=== PATIENT | female | born 1985 | race Caucasian/White ===

== ENCOUNTER 2017-12-21 09:50 | Observation (INO) | payer OTHER, MEDICAID ==
--- NOTE | 2017-12-21 07:27 | PDGENHP ---
History and Physical History and Physical: Assessment and Plan: 1. Endometriosis determined by laparoscopy Violet is scheduled for a repeat laparoscopy. Below is a copy of our prior plan. Violet has laparoscopic proven endometriosis which was not excised during her two laparoscopies last year. Additionally, she has bilateral tubal occlusion. The left may be from adhesions. It is unclear what is causing the occlusions on the right. The radiology report indicated a truncated tube consistent with a salpingectomy. But there is no indication that a salpingectomy was performed during either laparoscopy. She continues to suffer from severe pelvic pain, dysmenorrhea, and dyschezia. We reviewed all conservative and surgical options. At the end of our discussion she is interested in scheduling robotic excision of all endometriosis. This will include all lesions on the bowel, ureters, bladder, and pelvic structures. I also will evaluate the anterior chest wall and diaphragm for additional lesions of endometriosis given her cyclic chest and shoulder pain. These lesions also will be excised. I also will excise her new left ovarian endometrioma. I will perform a more thorough pelvic exam after induction of anesthesia to evaluate for and nodularity which will need to be addressed given my limited pelvic exam in the office secondary to extreme pain. Finally, I will perform a tubal perfusion study to reevaluate whether she has any patency of either fallopian tube. 2. Rectal endometriosis 3. Dysmenorrhea 4. Chest pain, non-cardiac Subjective: Patient ID: Violet Dallas is a 31 y.o. female who [facility] for endometriosis. HPI Violet underwent excision of endometriosis last year. She has symptoms of recurrent pain and has requested a repeat laparoscopy to look for and recurrent discease. Below is a copy of our prior pre-op history and physical. Violet Dallas presents for a preoperative visit. She is scheduled for a robotic excision of extensive endometriosis and left ovarian endometrioma and tubal perfusion study. The risks, benefits, and alternatives were presented and informed consent was obtained. 40 minutes of this 40 minute appointment was spent counceling, reviewing the procedure in detail, and discussing the preoperative and postoperative instructions. Below is a copy of our prior visit note. Violet is a 33-year-old para 2 woman with a set of twins. She has a long history of pelvic pain as well as laparoscopic proven endometriosis. She has had pain for about 3 years. Prior to that, she had extremely painful menses since the age of 17, which was mostly a cramping type sensation. After she failed medical management, Dr. Yeimi Hernandez performed a laparoscopy in December 2014. Her operative note indicates she found extensive deeply invasive endometriosis throughout the posterior cul-de-sac and on the pelvic sidewalls. She had a large endometrioma trapped between the left ovary and pelvic sidewall. She also had a simple follicular cyst of the right ovary with adhesions involving the colon to the right abdominal sidewall. The left fallopian tube appeared patent. Cystoscopy was unremarkable. Much of the endometriosis was found to overlie the ureters, major blood vessels, and the colon. She was only able to fulgurate the lesions which were found not to overlie vital structures. A chocolate cystic structure was found to be trapped between the left ovary and the pelvic sidewall. This ruptured during manipulation. She did not find any cyst wall to remove. Dr. Hernandez performed a tubal perfusion study with methylene blue at the conclusion of the procedure. She noted moderate spillage noted from the left tube but no spillage from the right tube. Unfortunately, Violet's pain persisted after surgery. A second laparoscopy was performed in August later that year. Dr. Hernandez found a deep implant of endometriosis on the right ovary which was fulgurated. She excised an implant adjacent to the right margin of the colon. All other implants were found to be deeply invasive and were fulgurated. A large left endometrioma was drained and the cyst wall removed. After the second laparoscopy Violet was started on a LoLoestrin, which made her feel very anxious. She then was switched to Citlalli, which apparently was well tolerated. She then stopped the control pill around January of 2016 to attempt . Her dysmenorrhea then returned. Dr. Hernandez ordered a hysterosalpingogram to look for tubal patency. The results showed no spillage from the left fallopian tube into the peritoneal cavity. The right fallopian tube was truncated consistent with a prior salpingectomy. However, no indication of a salpingectomy being performed was indicated in either operative note. Last June Dr. Hernandez recommended referral to [facility] given her infertility. Violet had been planning to go to [facility] [place]. Therefore, Dr. Hernandez ordered a pelvic ultrasound last September. She was found to have a possible 2.8 cm complex left ovarian cyst , which the machinery dismantler felt may be an endometrioma. Violet states that 2 weeks before her menses she develops right lower quadrant pain, nausea, and cramping. This radiates to her low back and rectum. She feels bloated when eating food. Additionally, she has some upper left abdomen/chest pain, which radiates to her left arm. This occurs in a cyclic fashion. She apparently has had a recent workup by gastroenterology, which was reportedly negative. I also received a photocopy of ultrasound images dated December 06, 2016. There is no associated report. The uterus is severely retroflexed. She appears to have a 3.1 cm left ovarian cyst, which to me has the appearance of an endometrioma. Her medical history is also significant for thyroid disorder after a thyroidectomy for a nodule. She also has fibromyalgia, IBS, anxiety, depression , and migraine headaches. PastMedicalHistory Past Medical History Diagnosis Date Acne Anxiety state, unspecified 2006 Cancer (HC code) 2014 Depression 2005 Dyspareunia, female Endometriosis Endometriosis determined by laparoscopy Erythromelalgia (HC code) 2008 Esophageal reflux 12/14/2010 Fibromyalgia Flushing ever since , right side of face worse than left, hurts, multiple workups, neg Generalized anxiety disorder Hypothyroidism Intractable chronic migraine without aura and with status migrainosus Irritable bowel syndrome Major depression Postherpetic neuralgia 06/10/2012 Right thyroid nodule Supraorbital neuralgia, 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 clonazePAM (KLONOPIN) 1 mg tablet for anxiety. Take one tablet daily prn gabapentin (GRALISE) 600 mg ER tablet for Neuropathic Pain. TAKE 3 TABLETS BY MOUTH TWICE DAILY FOR NEUROPATHIC PAIN gabapentin (NEURONTIN) 600 mg tablet Take 2 tablets by mouth 3 times daily for Neuropathic Pain. (Patient not taking: Reported on 12/06/2016) levothyroxine (SYNTHROID) 100 mcg tablet Take 1 tablet by mouth daily for hypothyroidism. LINZESS 145 mcg capsule 145 mcg every other day. rizatriptan (MAXALT) 10 mg tablet TAKE 1 TABLET BY MOUTH NEEDED FOR MIGRAINE. MAY REPEAT IN 2 HOURS IF NEEDED. MAX OF 10 DAYS PER MONTH rizatriptan (MAXALT) 10 mg tablet Take 1 tablet by mouth as needed for Migraine for Migraine. May repeat in 2 hours if needed. Max 10 days per month No current facility-administered medications for this visit. Facility-Administered Medications Ordered in Other Visits Medication Dose Route Frequency Provider Last Rate Last Dose dexaMETHasone (DECADRON) 4 mg/mL injection Intravenous PRN Kennedy , Tea S, OBGYN NURSE 6 mg at 07/13/12 1040 ephedrine injection Intravenous PRN Kennedy, Tea S, OBGYN NURSE 5 mg at 07/13/12 1059 fentaNYL PF (SUBLIMAZE) injection PRN Kennedy, Tea S, OBGYN NURSE 25 mcg at 07/13/12 1102 lidocaine 2% (cardiac) (XYLOCAINE) injection syringe PRN Kennedy , Tea S, OBGYN NURSE 20 mg at 07/13/12 1041 midazolam (VERSED) 1 mg/mL injection Intravenous PRN Kennedy, Tea S, OBGYN NURSE 0.5 mg at 07/13/12 1006 ondansetron (ZOFRAN) injection PRN Kennedy, Tea S, OBGYN NURSE 4 mg at 07/13/12 1045 PLASMALYTE solution Continuous PRN Kennedy, Tea S, OBGYN NURSE propofol (DIPRIVAN) infusion 10 mg/mL Continuous PRN Kennedy, Tea S, OBGYN NURSE Stopped at 07/13/12 1126 propofol (DIPRIVAN) injection PRN Kennedy, Tea S, OBGYN NURSE 20 mg at 07/13/12 1100 ALLERGIES: Tramadol; Latex; Morphine; and Pollen extracts I have reviewed, verified and agree with the past medical, surgical, , family, social and ROS history as documented by the RN today. Review of Systems Objective: Vital Signs: Visit Vitals BP 108/60 Pulse 60 Temp 36.7 C (98 F) (Temporal Artery) Resp 16 Ht 1.6 m (5' 3") Wt 53.1 kg (117 lb) LMP 11/03/2016 (Approximate) SpO2 98% BMI 20.73 kg/m2 Physical Exam Gen: This is an alert, well developed woman in no distress. Neuro: She moves all extremities. Psych: She is appropriate, oriented, with normal affect. Neck: No thyroid enlargement, adenopathy, or tenderness. Lungs: Clear to ascultation, no wheezes or rales. Heart: Regular rate and rhythm without obvious murmurs. Abdomen: Soft, non-tender, without guarding, rebound, or masses. Extremities: No edema or cyanosis. Pelvic: Normal external genitalia. Non-gaping introitus, vagina without discharge, adequately estrogenized, no significant prolapse. Cervix without lesions or discharge. Uterus normal sized. Violet is exquisitely tender in both the anterior and posterior cul-de-sacs. The uterus is retroverted and immobile. She has tenderness surrounding the cervix and along the posterior uterus. Both uterosacral ligaments are tender. It is difficult to appreciate any nodularity since the exam was significantly limited by pain. DATA: I have reviewed patient's outside medical records. Summary findings include as noted above. TIME/COMMUNICATION: I personally spent a total of 120 minutes taking the patient's history, reviewing her extensive medical records, performing her physical exam and counseling the patient regarding her endometriosis, pain, and treatment options. Jason lEizalde MD Board Certified Female Pelvic Medicine and Reconstructive Surgery Director of Minimally Invasive Gynecologic Surgery, [facility] Minimally Invasive Gynecologic Surgery Designee
[~2017-12-21 09:50] MED LIST: ACETAMINOPHEN 500 MG TAB PO ONE; GABAPENTIN 400 MG CAP PO ONE; LR 1,000 ML IV ONE; PHENAZOPYRIDINE HCL 200 MG TAB PO ONE; ceFAZolin 2 GM/SWFI 2 GM/20 ML SYR IVP ONE
[2017-12-21] MEDS ORDERED: MIDAZOLAM 2 MG/2 ML VIAL ONE (10:26)
[2017-12-21] MEDS ORDERED: fentaNYL 250 MCG/5 ML INJ ONE (10:45)
[2017-12-21] MEDS ORDERED: PROPOFOL/EMULSION 500 MG/50 ML BOTTLE IV ONE (10:45)
[2017-12-21] MEDS ORDERED: BUPIVACAINE/EPI 0.5% 30 ML SDV ONE (10:56)
[2017-12-21] MEDS ORDERED: DIAZEPAM 10 MG/2 ML SYR ONE (11:00)
[2017-12-21] MEDS ORDERED: DIAZEPAM 10 MG/2 ML SYR IVP PRN (11:24)
[2017-12-21] MEDS ORDERED: fentaNYL 100 MCG/2 ML INJ IVP PRN (11:24)
[2017-12-21] MEDS ORDERED: DEXAMETHASONE 4 MG/ML VIAL IVP PRN (11:24)
[2017-12-21] MEDS ORDERED: HYDROCODONE/APAP 5/325 TAB PO PRN ×2 (11:24→14:11)
[2017-12-21] MEDS ORDERED: ACETAMINOPHEN 500 MG TAB PO PRN (11:24)
[2017-12-21] MEDS ORDERED: NALOXONE HCL 0.4 MG/ML INJ IVP PRN (11:24)
[2017-12-21] MEDS ORDERED: epHEDrine SULFATE 10 MG/ML SYR IVP PRN (11:24)
[2017-12-21] MEDS ORDERED: OXYCODONE/APAP 5/325 TAB PO PRN (11:24)
[2017-12-21] MEDS ORDERED: MEPERIDINE 25 MG/ML SYR IVP PRN (11:24)
[2017-12-21] MEDS ORDERED: LR 500 ML IV PRN (11:24)
[2017-12-21] MEDS ORDERED: PHENYLEPHRINE HCL 100 MCG/ML SYR IVP PRN (11:24)
[2017-12-21] MEDS ORDERED: ALBUTEROL 3 ML DEYVIAL IH PRN (11:24)
[2017-12-21] MEDS ORDERED: ONDANSETRON 4 MG/2 ML VIAL IVP PRN (11:24)
[2017-12-21] MEDS ORDERED: PROMETHAZINE HCL 25 MG/ML INJ IVP PRN (11:24)
[2017-12-21] MEDS ORDERED: METOCLOPRAMIDE 10 MG/2 ML VIAL IVP PRN (11:24)
--- NOTE | 2017-12-21 11:24 | PDANEPAE ---
ANE Past Medical History - Cardiovascular History Hx Hypertension: No Hx Arrhythmias: No Hx Chest Pain: No Hx Coronary Artery / Peripheral Vascular Disease: No Hx CHF / Valvular Disease: No Hx Palpitations: No - Pulmonary History Hx COPD: No Hx Asthma/Reactive Airway Disease: No Hx Recent Upper Respiratory Infection: No Hx Oxygen in Use at Home: No Hx Sleep Apnea: No Sleep Apnea Screening Result - Last Documented: Negative - Neurologic History Hx Cerebrovascular Accident: No Hx Seizures: No Hx Dementia: No - Endocrine History Hx Diabetes: No - Renal History Hx Renal Disorders: No - Liver History Hx Hepatic Disorders: No - Neurological & Psychiatric Hx Hx Neurological and Psychiatric Disorders: Yes Neurological / Psychiatric History Comment: anxiety,depression - Cancer History Hx Cancer: Yes Cancer History Comment: thyroid CA 2014 - Congenital Disorder History Hx Congenital Disorders: No - GI History Hx Gastrointestinal Disorders: Yes Gastrointestinal History Comment: IBS with constipation - Other Health History Other Health History: bruises easily - Chronic Pain History Chronic Pain: Yes (facial discomfort ETIENNE) - Surgical History Prior Surgeries: excision of endometriosis 2017. thyroidectomy 2016. lap endometriosis x2 ANE Review of Systems Review of Systems: - Exercise capacity METS (RN): 4 METS ANE Patient History - Allergies Allergies/Adverse Reactions: latex Allergy (Intermediate, Verified 12/21/17 09:48) Rash morphine Allergy (Mild, Verified 12/21/17 09:48) Itching tramadol Allergy (Mild, Verified 12/21/17 09:48) Itching - Home Medications Home Medications: Cholecalciferol Vit D3 [Vitamin D3 2000 units tab (OTC)] 4,000 units PO DAILY [Last Taken Unknown] Gabapentin [Gralise] 300 mg PO BID 12/14/17 [Last Taken Unknown] Gabapentin [Gralise] 600 mg PO TID 12/14/17 [Last Taken Unknown] Herbals/Supplements -Info Only 1 ea PO DAILY 12/14/17 [Last Taken Unknown] Ibuprofen [Motrin (*)] 600 mg PO DAILY PRN 12/14/17 [Last Taken Unknown] Levothyroxine [Synthroid 100 mcg (*)] 100 mcg PO DAILY06 12/14/17 [Last Taken Unknown] Methocarbamol [Robaxin 500 mg (*)] 500 - 1,000 mg PO Q6HRS PRN 12/14/17 [Last Taken Unknown] clonazePAM [klonoPIN (*)] 1 mg PO DAILY PRN 12/14/17 [Last Taken Unknown] - NPO status NPO Since - Liquids (Date): 12/21/17 NPO Since - Liquids (Time): 08:00 NPO Since - Solids (Date): 12/20/17 NPO Since - Solids (Time): 20:00 - Smoking Hx Smoking Status: Former smoker - Family Anes Hx Family Hx Anesthesia Complications: father gets really nauseated ANE Labs/Vital Signs - Vital Signs Blood Pressure: 101/67 Heart Rate: 58 Respiratory Rate: 16 O2 Sat (%): 99 Height: 162.56 cm Weight: 52.617 kg ANE Physical Exam - Airway Neck exam: FROM Mallampati Score: Class 1 Mouth exam: normal dental/mouth exam - Pulmonary Pulmonary: no respiratory distress, no rales or rhonchi, clear to auscultation - Cardiovascular Cardiovascular: regular rate and rhythym, no murmur, rub, or gallop - ASA Status ASA Status: III ANE Anesthesia Plan Anesthesia Plan: general endotracheal anesthesia
[2017-12-21] MEDS ORDERED: PROPOFOL 200 MG/20 ML VIAL ONE (12:24)
[2017-12-21] MEDS ORDERED: KETOROLAC 30 MG/1 ML SDV ONE (12:53)
[2017-12-21] MEDS ORDERED: DEXAMETHASONE 4 MG/ML VIAL ONE (12:53)
[2017-12-21] MEDS ORDERED: SUGAMMADEX SODIUM 200 MG/2 ML VIAL IVP ONE (12:53)
[2017-12-21] MEDS ORDERED: ONDANSETRON 4 MG/2 ML VIAL ONE (12:53)
[2017-12-21] MEDS ORDERED: ROCURONIUM 50 MG/5 ML VIAL ONE (12:53)
[2017-12-21] MEDS ORDERED: RANITIDINE 50 MG/2 ML VIAL ONE (12:53)
[2017-12-21] MEDS ORDERED: LIDOCAINE 2% 5 ML SDV ONE (12:53)
[2017-12-21] MEDS ORDERED: METOCLOPRAMIDE 10 MG/2 ML VIAL ONE (12:53)
--- NOTE | 2017-12-21 13:00 | POSTOPPROG ---
Post Op Note Date of Operation: 12/21/17 Surgeon: Jason Elizalde Electrical Design Technologist: Elizabeth Castillo Anesthesiologist: Yelena Anesthesia: GET(General Endotracheal) Pre-op Diagnosis: Endometriosis, pelvic pain Post-op Diagnosis: Same Procedure: Robotic excision of endo, rectal lesion, bilat ureterolysis Findings: Ureters function at end of case Inf/Abcess present in the surg proc area at time of surgery?: No EBL: Minimal Complications: None
--- NOTE | 2017-12-21 13:10 | POSTANESTH ---
Post Anesthetic Evaluation Cardiovascular Status: Normal, Stable, Similar to Pre-Op Cond Respiratory Status: Normal, Stable, Similar to Pre-op Cond. Level of Consciousness/Mental Status: Mildly Sleepy, Arousable Pain Control: Adequate, Prn Tx Ordered Nausea/Vomiting Control: Adequate, Prn Tx Ordered Complications Possibly Related to Anesthesia: None Noted
[2017-12-21] MEDS ORDERED: fentaNYL 100 MCG/2 ML INJ ONE (13:12)
[2017-12-21] MEDS: HYDROmorphONE/DILAUDID 1 MG/ML INJ IVP PRN ×2 (13:15→13:37)
--- NOTE | 2017-12-21 13:18 | PDANEPAE ---
ANE Past Medical History - Cardiovascular History Hx Hypertension: No Hx Arrhythmias: No Hx Chest Pain: No Hx Coronary Artery / Peripheral Vascular Disease: No Hx CHF / Valvular Disease: No Hx Palpitations: No - Pulmonary History Hx COPD: No Hx Asthma/Reactive Airway Disease: No Hx Recent Upper Respiratory Infection: No Hx Oxygen in Use at Home: No Hx Sleep Apnea: No Sleep Apnea Screening Result - Last Documented: Negative - Neurologic History Hx Cerebrovascular Accident: No Hx Seizures: No Hx Dementia: No - Endocrine History Hx Diabetes: No - Renal History Hx Renal Disorders: No - Liver History Hx Hepatic Disorders: No - Neurological & Psychiatric Hx Hx Neurological and Psychiatric Disorders: Yes Neurological / Psychiatric History Comment: anxiety,depression - Cancer History Hx Cancer: Yes Cancer History Comment: thyroid CA 2014 - Congenital Disorder History Hx Congenital Disorders: No - GI History Hx Gastrointestinal Disorders: Yes Gastrointestinal History Comment: IBS with constipation - Other Health History Other Health History: bruises easily - Chronic Pain History Chronic Pain: Yes (facial discomfort ETIENNE) - Surgical History Prior Surgeries: excision of endometriosis 2017. thyroidectomy 2016. lap endometriosis x2 ANE Review of Systems Review of Systems: - Exercise capacity METS (RN): 4 METS ANE Patient History - Allergies Allergies/Adverse Reactions: latex Allergy (Intermediate, Verified 12/21/17 09:48) Rash morphine Allergy (Mild, Verified 12/21/17 09:48) Itching tramadol Allergy (Mild, Verified 12/21/17 09:48) Itching - Home Medications Home Medications: Cholecalciferol Vit D3 [Vitamin D3 2000 units tab (OTC)] 4,000 units PO DAILY [Last Taken Unknown] Gabapentin [Gralise] 300 mg PO BID 12/14/17 [Last Taken Unknown] Gabapentin [Gralise] 600 mg PO TID 12/14/17 [Last Taken Unknown] Herbals/Supplements -Info Only 1 ea PO DAILY 12/14/17 [Last Taken Unknown] Ibuprofen [Motrin (*)] 600 mg PO DAILY PRN 12/14/17 [Last Taken Unknown] Levothyroxine [Synthroid 100 mcg (*)] 100 mcg PO DAILY06 12/14/17 [Last Taken Unknown] Methocarbamol [Robaxin 500 mg (*)] 500 - 1,000 mg PO Q6HRS PRN 12/14/17 [Last Taken Unknown] clonazePAM [klonoPIN (*)] 1 mg PO DAILY PRN 12/14/17 [Last Taken Unknown] - NPO status NPO Since - Liquids (Date): 12/21/17 NPO Since - Liquids (Time): 08:00 NPO Since - Solids (Date): 12/20/17 NPO Since - Solids (Time): 20:00 - Smoking Hx Smoking Status: Former smoker - Family Anes Hx Family Hx Anesthesia Complications: father gets really nauseated ANE Labs/Vital Signs - Vital Signs Blood Pressure: 101/67 Heart Rate: 58 Respiratory Rate: 16 O2 Sat (%): 99 Height: 162.56 cm Weight: 52.617 kg
[2017-12-21] MEDS ORDERED: HYDROmorphONE/DILAUDID 1 MG/ML INJ ONE (13:28)
[2017-12-21] MEDS ORDERED: OPIUM/BELLADONNA ALKALO SUPP PR ONE ×2 (14:15→14:17)
[2017-12-21 14:48] VITALS: TEMP 97.5
[2017-12-21] MEDS ORDERED: PROMETHAZINE HCL 25 MG/ML INJ ONE (15:22)
--- NOTE | 2017-12-21 15:58 | GOP ---
[f rep st] OPERATIVE REPORT DATE OF OPERATION: 12/21/2017 SURGEON: Jason Elizalde MD TRANSFER PROFESSOR: Elizabeth Castillo CFA. ANESTHESIA: General. PREOPERATIVE DIAGNOSIS: 1. Endometriosis. 2. Dysmenorrhea. 3. Pelvic pain. 4. Dyschezia. 5. Urinary frequency. 6. Cyclic pelvic pain. POSTOPERATIVE DIAGNOSIS: 1. Endometriosis. 2. Dysmenorrhea. 3. Pelvic pain. 4. Dyschezia. 5. Urinary frequency. 6. Cyclic pelvic pain. PROCEDURE PERFORMED: 1. Robotic excision of extensive endometriosis throughout the posterior cul-de- sac and bilateral ovarian fossae. 2. Bilateral ureterolysis. 3. Excision of rectal lesions. 4. Bilateral ovarian pexy. 5. Cystoscopy. FINDINGS: SPECIMENS: Pelvic peritoneum with endometriosis. ESTIMATED BLOOD LOSS: Scant. DESCRIPTION OF PROCEDURE: The patient was taken to the operating room where she was identified. General anesthesia was administered and found to be adequate. She was placed into the lithotomy position and prepared and draped in normal sterile fashion. A Hulka tenaculum was placed in the uterus for manipulation. A Chen catheter was then placed. A 1 cm infraumbilical incision was made with a scalpel. The Veress needle with the CO2 gas flowing was advanced into the peritoneal cavity. The abdomen was then insufflated with carbon dioxide gas. The 12 mm trocar followed by the laparoscope was then inserted. The upper abdomen was unremarkable. There was no evidence of endometriosis on either diaphragm, liver, gallbladder, or stomach. She did have a few adhesions of bowel to the right anterior abdominal wall. Two lateral ports were placed in the right and one on the left under direct visualization. She then was placed in Trendelenburg position and the da [place] robot docked on the left side. The instruments were then brought into the abdominal cavity under direct visualization. The patient was noted to have endometriosis and adhesions throughout the posterior cul-de-sac and bilateral ovarian fossae. There were lesions on the serosal surface of the uterus both anteriorly and posteriorly as well as on the ovaries. The ovaries were also adherent to the pelvic sidewalls. The ovaries were first freed up from the pelvic sidewalls and the endometriosis treated. Given the sacral pelvic pain, a bilateral ovarian pexy was performed by attaching each ovary to the ipsilateral round ligaments near the internal inguinal rings with 3-0 Vicryl Rapide suture. A bilateral ureterolysis was required given the extensive endometriosis in the ovarian fossae. The peritoneum at the pelvic brims were incised. The ureters were gently dissected free and lateralized from the pelvic brim all the way down to the bladder to separate them from the overlying peritoneum and endometriosis. Once this was accomplished, the entire peritoneum and endometriosis in the ovarian fossas was excised. There was a lesion on the distal rectum which was gently dissected free. This extended all the way to the mucosal surface. This was reapproximated in 2 layers with figure-of-8 sutures of 3-0 Vicryl. A second similar lesion was excised approximately 1 cm distal to the first. The peritoneum in the posterior cul-de-sac and the posterior cervix was then excised. The pelvis was then copiously irrigated with sterile saline. Hemostasis was present. The endometriosis on the serosal surface of the uterus was then likewise treated. All specimens were removed. Two sheets of Interceed were placed to try to minimize postoperative adhesion formation. The robot was then undocked. The fascia was closed with 0 Vicryl, skin with 4-0 Monocryl, and surgical adhesive. Cystoscopy was then performed. Both ureters had vigorous jets of urine. There was no evidence of bladder nor urethral injury seen. No obvious pathology was seen which would account for the patient's urinary frequency. Anesthesia was then reversed and the patient taken to the PACU awake in stable condition. COMPLICATIONS: None. DISPOSITION: Patient stable to PACU. /[id number]/MODL MTDD
[2017-12-21 16:23] VITALS: BP 93/54; RESP 19; O2SAT 99
[2017-12-21 16:25] VITALS: PULSE 65
[2017-12-21] MEDS ORDERED: ceFAZolin 2 GM/DEXTROSE 100 ML IV ONE (18:00)
== END 2017-12-21 16:00 | disposition home or self-care (01) ==
LOC: F3E 09:50
PROVIDERS: ADMIT Obstetrics & Gynecology; ATTEND Obstetrics & Gynecology
PROC: 0UB28ZX Excision of Bilateral Ovaries, Via Natural or Artificial Opening Endoscopic, Diagnostic (ICD-10-PCS; principal; 2017-12-21 10:45)
PROC: 0UBF8ZX Excision of Cul-de-sac, Via Natural or Artificial Opening Endoscopic, Diagnostic (ICD-10-PCS; principal; 2017-12-21 10:45)
PROC: 0US28ZZ Reposition Bilateral Ovaries, Via Natural or Artificial Opening Endoscopic (ICD-10-PCS; principal; 2017-12-21 10:45)
DX: N80.3 Endometriosis of pelvic peritoneum (principal); N94.6 Dysmenorrhea, unspecified; R10.2 Pelvic and perineal pain; R35.0 Frequency of micturition; R07.9 Chest pain, unspecified
CPT/HCPCS: 58662; 58679; C1765; J0690; J1100; J1170; J1885; J2250; J2405; J2704; J2765; J2780; J3010; J2370; J2550; J3360